=== PATIENT | female | born 1985 | race Caucasian/White ===

== ENCOUNTER 2022-12-21 10:27 | Inpatient (IN) | payer BC ==
[2022-12-21] MEDS ORDERED: MORPHINE 4 MG/ML SYR ONE (11:03)
[2022-12-21] MEDS ORDERED: ONDANSETRON 4 MG/2 ML VIAL ONE (11:03)
[2022-12-21] MEDS ORDERED: NA CHLORIDE 0.9% 1,000 ML ONE (11:04)
[2022-12-21] MEDS ORDERED: FAMOTIDINE 20 MG/2 ML VIAL IV ONE (11:04)
[2022-12-21 11:13] LABS: Specific Gravity 1.025 (1.005-1.030)
[2022-12-21 11:16] LABS: Specific Gravity 1.025 (1.005-1.030); Urine Bacteria 20-50 /HPF (<20); Urine Bilirubin NEGATIVE (Negative); Urine Blood 3+ (Negative); Urine Clarity Turbid (Clear); Urine Color Light-Yellow (Yellow); Urine Glucose 4+ (Over) (Negative); Urine Mucus Slight /HPF (None Seen); Urine Protein 1+ (Negative); Urine RBC <5 /HPF (None Seen); Urine Urobilinogen Normal (Normal)
[2022-12-21] MEDS ORDERED: HYDROMORPHONE HCL 1 MG/ML INJ ONE ×2 (11:19→13:47)
[2022-12-21 11:23] LABS: Absolute Lymphocytes (CBC) 2.1 K/uL (0.7-4.9); Hematocrit 35.5 % (36.0-45.0); Lymphocytes % 12.6 % (15.3-44.8); MCV 83.2 fL (80-100); RBC Red Blood Cell Count 4.26 M/uL (3.86-4.86)
[2022-12-21 11:26] LABS: Platelets 343 thou/uL (152-406)
[2022-12-21 11:28] LABS: MPV 8.7 fL (7.6-11.3)
[2022-12-21 11:31] LABS: Albumin 4.1 g/dL (3.4-5.0); Bilirubin Total 0.4 mg/dL (0.2-1.0); Potassium 3.6 mEq/L (3.5-5.1); Protein, Total 8.4 g/dL (6.4-8.2)
[2022-12-21 11:34] LABS: Blood Morphology Comment NOT SEEN (NOT SEEN); Platelet Estimate ADEQ; White Blood Cell Scan OK (OK)
--- NOTE | 2022-12-21 12:13 | RAD REPORT ---
EXAM DESCRIPTION: CT - Abdomen Pelvis W Contrast - 12/21/2022 11:46 am CLINICAL HISTORY: Abdominal pain COMPARISON: none. TECHNIQUE: Computed axial tomography of the abdomen pelvis was obtained. 95 cc Isovue-300 was admini stered intravenously. Oral contrast was not requested which limits evaluation of bowel and appendix All CT scans are performed using dose optimization technique as appropriate and may include automated exposure control or mA/KV adjustment according to patient size. FINDINGS: The liver is moderately enlarged. It contains fatty infiltration. Moderate stranding within the peripancreatic fat. No pseudocyst. Pancreas is normal density. Spleen, adrenals and kidneys unremarkable There is no evidence of diverticulitis. No adnexal mass. Small umbilical hernia Possible right hemicolectomy. This should be correlated clinically. If the patient has not had colon surgery then the cecum lies within right abdomen well above level of the iliac crests IMPRESSION: Moderate pancreatitis Hepatomegaly with fatty infiltration
--- NOTE | 2022-12-21 12:15 | RAD REPORT ---
EXAM DESCRIPTION: US - Abdomen Exam Complete - 12/21/2022 11:36 am CLINICAL HISTORY: Abdominal pain COMPARISON: none FINDINGS: The liver has an increased echotexture. Moderate hepatomegaly A gallstone is not seen. The gallbladder wall is not thickened. The biliary tree is normal caliber. The right kidney measures 12 centimeters with a normal echotexture. The left kidney measures 12 centimeters with a normal echotexture. The spleen measures 13 centimeters. Limited evaluation of pancreas, aorta and IVC secondary to overlying bowel gas IMPRESSION: Hepatomegaly with fatty infiltration Refer to CT abdomen report on today's date for pancreatic findings
[2022-12-21] MEDS ORDERED: HYDROMORPHONE HCL 0.5 MG/0.5 ML INJ ONE ×2 (12:29→12:31)
[2022-12-21] MEDS ORDERED: NA CHLORIDE 0.9% 2,000 ML ONE (12:30)
--- NOTE | 2022-12-21 12:38 | ER ---
Nurse's Notes [facility] Name: America Bustos Age: 36 yrs Sex: Female : 1985 Arrival Date: 12/21/2022 Time: 10:27 Bed 18 Private MD: Diagnosis: Epigastric abdominal tenderness;Biliary acute pancreatitis;Vomiting;Obesity, unspecified;Elevated white blood cell count;Hyperlipidemia, unspecified-HYPERTRIGLYCERDEMIA Presentation: 12/21 10:35 Chief complaint: Patient states: ABD pain since this morning - N/V. Coronavirus screen: ld1 At this time, the client does not indicate any symptoms associated with coronavirus-19. Ebola Screen: No symptoms or risks identified at this time. Initial Sepsis Screen: Does the patient meet any 2 criteria? No. Patient's initial sepsis screen is negative. Does the patient have a suspected source of infection? No. Patient's initial sepsis screen is negative. Risk Assessment: Do you want to hurt yourself or someone else? Patient reports no desire to harm self or others. Onset of symptoms was December 21, 2022. 10:35 Method Of Arrival: Ambulatory ld1 10:35 Acuity: PHYLLIS 3 ld1 Triage Assessment: 11:00 General: Appears in no apparent distress. uncomfortable, Behavior is cooperative, ld1 agitated, crying, fussy. Pain: Complains of pain in abdomen Pain does not radiate. Pain currently is 10 out of 10 on a pain scale. Quality of pain is described as sharp, shooting, throbbing, Pain began 4 hours ago. Is continuous. EENT: No signs and/or symptoms were reported regarding the EENT system. Neuro: Level of Consciousness is awake, alert, obeys commands, Oriented to person, place, time, situation. Cardiovascular: Capillary refill < 3 seconds Patient's skin is warm and dry. Rhythm is sinus rhythm. Respiratory: Airway is patent Respiratory effort is even, unlabored. GI: Abdomen is round non-distended, Reports lower abdominal pain, upper abdominal pain, nausea, vomiting. : No signs and/or symptoms were reported regarding the genitourinary system. Derm: No signs and/or symptoms reported regarding the dermatologic system. Musculoskeletal: No signs and/or symptoms reported regarding the musculoskeletal system. Historical: - Allergies: 10:35 OPIOID ANALGESICS; ld1 - PMHx: 10:35 Hypertensive disorder; Diabetes mellitus; ld1 - PSHx: 10:35 tubal ligation; ld1 - Immunization history:: Adult Immunizations up to date. - Social history:: Smoking status: Patient denies any tobacco usage or history of. - Family history:: not pertinent. Screenin:01 [facility] ED Fall Risk Assessment (Adult) History of falling in the last 3 months, ld1 including since admission No falls in past 3 months (0 pts). Abuse screen: Denies threats or abuse. Denies injuries from another. Nutritional screening: No deficits noted. Tuberculosis screening: No symptoms or risk factors identified. Assessment: 11:01 Reassessment: See triage assessment. ld1 Vital Signs: 10:35 BP 142 / 78; Pulse 90; Resp 18; Temp 97.9(O); Pulse Ox 100% on R/A; Height 5 ft. 6 in. ld1 ; Pain 10/10; 11:00 BP 142 / 78; Pulse 84; Resp 19; Pulse Ox 100% on R/A; Weight 99.79 kg; Height 5 ft. 9 ld1 in. ; Pain 10/10; 12:00 BP 144 / 89; Pulse 101; Resp 18; Pulse Ox 100% on R/A; Pain 9/10; me1 12:35 BP 116 / 81; Pulse 113; Resp 20; Pulse Ox 99% on R/A; Pain 9/10; me1 12:35 BP 130 / 78; Pulse 118; Resp 22; Pulse Ox 95% on R/A; Pain 6/10; me1 11:00 Body Mass Index 32.49 (99.79 kg, 175.26 cm) ld1 10:35 Pain Scale: Adult ld1 11:00 Pain Scale: Adult ld1 12:00 Pain Scale: Adult me1 12:35 Pain Scale: Adult me1 12:35 Pain Scale: Adult me1 ED Course: 10:28 Patient arrived in ED. mg5 10:35 Barbara Coffey, SOLO is Primary Nurse. ld1 10:36 Scar Vazquez MD is Attending Physician. maureen 10:36 Triage completed. ld1 10:59 Urinalysis w/ reflexes Sent. ld1 10:59 Test, Urine Sent. ld1 10:59 Lipase Sent. ld1 10:59 CMP Sent. ld1 10:59 CBC with Diff Sent. ld1 11:00 Arm band placed on right wrist. ld1 11:01 No provider procedures requiring assistance completed. Inserted saline lock: 20 gauge ld1 in right antecubital area, using aseptic technique. Blood collected. 11:01 Patient has correct armband on for positive identification. Placed in gown. Bed in low ld1 position. Call light in reach. Side rails up X2. hydraulic spinner on. Pulse ox on. NIBP on. Door closed. Noise minimized. Warm blanket given. 11:10 Test, Urine Sent. ld1 11:10 Urinalysis w/ reflexes Sent. ld1 11:38 US Abdomen Complete In Process Unspecified. EDMS 11:48 CT Abd/Pelvis - IV Contrast Only In Process Unspecified. EDMS 12:30 IV discontinued, intact, bleeding controlled, No redness/swelling at site. Pressure me1 dressing applied. 12:36 Wero Dominguez MD is Hospitalizing Provider. maureen 13:46 Inserted saline lock: 18 gauge in left EJ, using aseptic technique. ,using aseptic me1 technique. by Dr Vazquez. 14:10 Lactate w/ 2H reflex if indic. Sent. me1 14:10 Troponin HS Sent. me1 14:10 Accessed Right groin triple lumen central line started by Dr Vazquez. me1 Administered Medications: 10:59 Drug: NS 0.9% IV 1000 ml Route: IV; Rate: 1 bolus; Site: right antecubital; ld1 14:40 Follow up: IV Status: Completed infusion; IV Intake: 1000ml me1 10:59 Drug: Famotidine IVP 20 mg Route: IVP; Site: right antecubital; ld1 12:16 Follow up: Response: No adverse reaction me1 10:59 Drug: Ondansetron IVP 4 mg Route: IVP; Site: right antecubital; ld1 12:16 Follow up: Response: No adverse reaction me1 10:59 Drug: morphine IVP or IV 4 mg Route: IVP; Infused Over: 4 mins; Site: right antecubital;ld1 11:10 Follow up: Response: No adverse reaction ld1 11:10 Drug: HYDROmorphone IVP 1 mg Route: IVP; Site: right antecubital; ld1 12:47 Follow up: Response: No adverse reaction me1 12:27 Drug: NS 0.9% IV 1000 ml Route: IV; Rate: 1 bolus; Site: left antecubital; me1 12:27 Drug: NS 0.9% IV 1000 ml Route: IV; Rate: 1 bolus; Site: left antecubital; me1 12:27 Drug: HYDROmorphone IVP 1 mg Route: IVP; Site: left antecubital; me1 14:15 Follow up: Response: No adverse reaction; Pain is unchanged, physician notified me1 13:46 Drug: HYDROmorphone IVP 1 mg Route: IVP; Site: left jugular; me1 14:09 Follow up: Response: No adverse reaction; Pain is decreased me1 14:14 Drug: Meropenem IV 1 grams {Note: Right groin central line.} Route: IV; Rate: per me1 protocol; Site: Other; Medication: 11:01 VIS not applicable for this client. ld1 Intake: 14:40 IV: 1000ml; Total: 1000ml. me1 Outcome: 12:37 Decision to Hospitalize by Provider. maureen 14:44 Admitted to Med/surg me1 14:44 Condition: stable 14:44 Instructed on the need for admit. 14:45 Admitted to Med/surg accompanied by nurse, via stretcher, room 207, with chart, Report me1 called to SOLO Lara. 15:10 Patient left the ED. me1 Signatures: Dispatcher [employer] Scar Burger MD MD cha Sims, Lauren, RN RN [email or web address] Mary Sutherland RN RN me1 Leola Nicole mg5
--- NOTE | 2022-12-21 12:38 | EDPHYS ---
Physician Documentation [facility] Name: America Bustos Age: 36 yrs Sex: Female : 1985 Arrival Date: 12/21/2022 Time: 10:27 Bed 18 Private MD: ED Physician Scar Vazquez HPI: 12/21 12:32 This 36 yrs old Unknown Female presents to ER via Ambulatory with complaints of maureen Abdominal Pain. 12:32 The patient presents with abdominal pain abdominal distention in the upper abdomen. maureen Onset: The symptoms/episode began/occurred yesterday. The patient presents to the emergency department with nausea, vomiting, abdominal pain, of the epigastric area, right upper quadrant and left upper quadrant. Onset: The symptoms/episode began/occurred yesterday. Possible causes: unknown. The symptoms are aggravated by nothing. The symptoms are alleviated by nothing. The symptoms radiate to back. The symptoms do not radiate. Associated signs and symptoms: Pertinent positives: abdominal pain, nausea, vomiting. Historical: - Allergies: 10:35 OPIOID ANALGESICS; ld1 - PMHx: 10:35 Hypertensive disorder; Diabetes mellitus; ld1 - PSHx: 10:35 tubal ligation; ld1 - Immunization history:: Adult Immunizations up to date. - Social history:: Smoking status: Patient denies any tobacco usage or history of. - Family history:: not pertinent. ROS: 12:32 Constitutional: Negative for fever, chills, and weight loss, Eyes: Negative for injury, maureen pain, redness, and discharge, ENT: Negative for injury, pain, and discharge, Neck: Negative for injury, pain, and swelling, Cardiovascular: Negative for chest pain, palpitations, and edema, Respiratory: Negative for shortness of breath, cough, wheezing, and pleuritic chest pain, Back: Negative for injury and pain, : Negative for injury, bleeding, discharge, and swelling, MS/Extremity: Negative for injury and deformity, Skin: Negative for injury, rash, and discoloration, Neuro: Negative for headache, weakness, numbness, tingling, and seizure, Psych: Negative for depression, anxiety, suicide ideation, homicidal ideation, and hallucinations, Allergy/Immunology: Negative for hives, rash, and allergies, Endocrine: Negative for neck swelling, polydipsia, polyuria, polyphagia, and marked weight changes, Hematologic/Lymphatic: Negative for swollen nodes, abnormal bleeding, and unusual bruising. 12:32 Abdomen/GI: Positive for abdominal pain, nausea and vomiting, of the epigastric area, right upper quadrant and left upper quadrant. Exam: 12:32 Constitutional: This is a well developed, well nourished patient who is awake, alert, muareen and in no acute distress. Head/Face: Normocephalic, atraumatic. Eyes: Pupils equal round and reactive to light, extra-ocular motions intact. Lids and lashes normal. Conjunctiva and sclera are non-icteric and not injected. Cornea within normal limits. Periorbital areas with no swelling, redness, or edema. ENT: Nares patent. No nasal discharge, no septal abnormalities noted. Tympanic membranes are normal and external auditory canals are clear. Oropharynx with no redness, swelling, or masses, exudates, or evidence of obstruction, uvula midline. Mucous membranes moist. Neck: Trachea midline, no thyromegaly or masses palpated, and no cervical lymphadenopathy. Supple, full range of motion without nuchal rigidity, or vertebral point tenderness. No Meningismus. Chest/axilla: Normal chest wall appearance and motion. Nontender with no deformity. No lesions are appreciated. Cardiovascular: Regular rate and rhythm with a normal S1 and S2. No gallops, murmurs, or rubs. Normal PMI, no JVD. No pulse deficits. Respiratory: Lungs have equal breath sounds bilaterally, clear to auscultation and percussion. No rales, rhonchi or wheezes noted. No increased work of breathing, no retractions or nasal flaring. Back: No spinal tenderness. No costovertebral tenderness. Full range of motion. Female : Normal external genitalia. Skin: Warm, dry with normal turgor. Normal color with no rashes, no lesions, and no evidence of cellulitis. MS/ Extremity: Pulses equal, no cyanosis. Neurovascular intact. Full, normal range of motion. Neuro: Awake and alert, GCS 15, oriented to person, place, time, and situation. Cranial nerves II-XII grossly intact. Motor strength 5/5 in all extremities. Sensory grossly intact. Cerebellar exam normal. Normal gait. Psych: Awake, alert, with orientation to person, place and time. Behavior, mood, and affect are within normal limits. 12:32 Abdomen/GI: Inspection: distension, Bowel sounds: normal, Palpation: moderate abdominal tenderness, in the right upper quadrant and left upper quadrant, Liver: no appreciated palpable abnormalities, Hernia: not appreciated. 14:18 ECG was reviewed by the Attending Physician. [facility] Vital Signs: 10:35 BP 142 / 78; Pulse 90; Resp 18; Temp 97.9(O); Pulse Ox 100% on R/A; Height 5 ft. 6 in. ld1 ; Pain 10/10; 11:00 BP 142 / 78; Pulse 84; Resp 19; Pulse Ox 100% on R/A; Weight 99.79 kg; Height 5 ft. 9 ld1 in. ; Pain 10/10; 12:00 BP 144 / 89; Pulse 101; Resp 18; Pulse Ox 100% on R/A; Pain 9/10; me1 12:35 BP 116 / 81; Pulse 113; Resp 20; Pulse Ox 99% on R/A; Pain 9/10; me1 12:35 BP 130 / 78; Pulse 118; Resp 22; Pulse Ox 95% on R/A; Pain 6/10; me1 11:00 Body Mass Index 32.49 (99.79 kg, 175.26 cm) ld1 10:35 Pain Scale: Adult ld1 11:00 Pain Scale: Adult ld1 12:00 Pain Scale: Adult me1 12:35 Pain Scale: Adult me1 12:35 Pain Scale: Adult me1 Procedures: 13:49 Central Line: the site was prepped with Betadine, in sterile fashion, a triple lumen maureen catheter was inserted, in the right femoral vein, in 1 attempts. placement was verified, by blood return, the site was dressed with using sterile technique, the patient tolerated the procedure, well. Peripheral line: by aseptic technique a peripheral line was placed in the left external jugular vein. MDM: 10:36 Patient medically screened. [facility] 12:39 Differential diagnosis: Nonspecific abd pain, gastritis, cholecystitis, pancreatitis, maureen appendicitis, diverticulitis, viral gastroenteritis, gastroenteritis, bowel obstruction, cholecystitis, Cholelithiasis, gastritis, GI Bleed, Hepatitis, Menorrhagia, Mesenteric ischemia or infarction, non-specific abd pain, pancreatitis, Peptic Ulcer Disease, Perf. Duodenal Ulcer, Perf. Gastric Ulcer, Peritonitis, Pyelonephritis, Ureterolithiasis, urinary tract infection. Data reviewed: vital signs, nurses notes, lab test result(s), EKG, radiologic studies, CT scan, plain films, ultrasound. Consideration of Admission/Observation Patient was admitted/placed on observation. Escalation of care including admission/observation considered. I considered the following discharge prescriptions or medication management in the emergency department Medications were administered in the Emergency Department. See MAR. Independent interpretation of the following test(s) in the Emergency Department EKG: See my EKG interpretation above. Test considered but Not performed: MRI: no mrcp. Historians other than the Patient: Family Member: sister and mom, informed. Care significantly affected by the following chronic conditions: Diabetes, Hypertension, Obesity. Counseling: I had a detailed discussion with the patient and/or guardian regarding the historical points, exam findings, and any diagnostic results supporting the discharge/admit diagnosis, lab results, radiology results, the need for further work-up and treatment in the hospital. 12/21 10:37 Order name: CBC with Diff; Complete Time: 12:03 [facility] 12/21 10:37 Order name: CMP; Complete Time: 12:03 [facility] 12/21 10:37 Order name: Lipase; Complete Time: 12:03 [facility] 12/21 10:37 Order name: Test, Urine; Complete Time: 12:03 [facility] 12/21 10:37 Order name: Urinalysis w/ reflexes; Complete Time: 12:03 [facility] 12/21 11:32 Order name: CBC Smear Scan; Complete Time: 12:03 [facility] 12/21 12:04 Order name: Lipid Profile; Complete Time: 14:49 [facility] 12/21 12:39 Order name: Lactate w/ 2H reflex if indic.; Complete Time: 14:46 [facility] 12/21 12:39 Order name: Troponin HS; Complete Time: 14:46 [facility] 12/21 13:17 Order name: Urinalysis w/ reflexes [facility] 12/21 13:17 Order name: Basic Metabolic Panel EDID 12/21 13:17 Order name: Basic Metabolic Panel EDID 12/21 13:17 Order name: CBC with Automated Diff EDID 12/21 13:17 Order name: CBC with Automated Diff EDMS 12/21 13:17 Order name: Magnesium EDMS 12/21 13:17 Order name: Magnesium EDMS 12/21 13:17 Order name: Phosphorus EDMS 12/21 13:17 Order name: Phosphorus EDMS 12/21 13:25 Order name: Lipase EDMS 12/21 13:25 Order name: Lipase EDMS 12/21 13:25 Order name: Lipase EDMS 12/21 14:49 Order name: LDL, Direct; Complete Time: 14:49 EDID 12/21 10:37 Order name: CT Abd/Pelvis - IV Contrast Only; Complete Time: 12:28 [facility] 12/21 10:47 Order name: US Abdomen Complete; Complete Time: 12:28 [facility] 12/21 12:36 Order name: EKG; Complete Time: 12:36 [facility] 12/21 13:17 Order name: NPO EDID 12/21 10:37 Order name: IV Saline Lock; Complete Time: 10:46 [facility] 12/21 10:37 Order name: Labs collected and sent; Complete Time: 10:46 [facility] 12/21 12:36 Order name: EKG - Nurse/Tech; Complete Time: 14:21 [facility] 12/21 12:39 Order name: NPO; Complete Time: 12:47 [facility] EC:18 Rate is 115 beats/min. Rhythm is regular. QRS [place] is Normal. [place] interval is normal. maureen QRS interval is normal. QT interval is normal. No Q waves. T waves are Normal. No ST changes noted. Clinical impression: Sinus tachycardia and No evidence of ischemia. Interpreted by me. Reviewed by me. Administered Medications: 10:59 Drug: NS 0.9% IV 1000 ml Route: IV; Rate: 1 bolus; Site: right antecubital; ld1 14:40 Follow up: IV Status: Completed infusion; IV Intake: 1000ml me1 10:59 Drug: Famotidine IVP 20 mg Route: IVP; Site: right antecubital; ld1 12:16 Follow up: Response: No adverse reaction me1 10:59 Drug: Ondansetron IVP 4 mg Route: IVP; Site: right antecubital; ld1 12:16 Follow up: Response: No adverse reaction me1 10:59 Drug: morphine IVP or IV 4 mg Route: IVP; Infused Over: 4 mins; Site: right antecubital;ld1 11:10 Follow up: Response: No adverse reaction ld1 11:10 Drug: HYDROmorphone IVP 1 mg Route: IVP; Site: right antecubital; ld1 12:47 Follow up: Response: No adverse reaction me1 12:27 Drug: NS 0.9% IV 1000 ml Route: IV; Rate: 1 bolus; Site: left antecubital; me1 12:27 Drug: NS 0.9% IV 1000 ml Route: IV; Rate: 1 bolus; Site: left antecubital; me1 12:27 Drug: HYDROmorphone IVP 1 mg Route: IVP; Site: left antecubital; me1 14:15 Follow up: Response: No adverse reaction; Pain is unchanged, physician notified me1 13:46 Drug: HYDROmorphone IVP 1 mg Route: IVP; Site: left jugular; me1 14:09 Follow up: Response: No adverse reaction; Pain is decreased me1 14:14 Drug: Meropenem IV 1 grams {Note: Right groin central line.} Route: IV; Rate: per me1 protocol; Site: Other; Disposition Summary: 12/21/22 12:37 Hospitalization Ordered Hospitalization Status: Inpatient Admission maureen Provider: Wero Dominguez cha Condition: Fair maureen Problem: new maureen Symptoms: have improved maureen Bed/Room Type: Standard maureen Location: Intensive Care Unit(12/21/22 15:07) ja Room Assignment: 3-(12/21/22 15:07) [facility] Diagnosis - Epigastric abdominal tenderness maureen - Biliary acute pancreatitis maureen - Vomiting maureen - Obesity, unspecified maureen - Elevated white blood cell count maureen - Hyperlipidemia, unspecified - HYPERTRIGLYCERDEMIA maureen Forms: - Medication Reconciliation Form maureen - SBAR form maureen - Leadership Thank You Letter maureen Signatures: Dispatcher [employer] Scar Burger MD MD cha Aguilar, Jose RN RN ja1 Barbara Coffey RN RN ld1 Mary Sutherland RN RN me1 Corrections: (The following items were deleted from the chart) 14:16 12:37 maureen [facility] 15:07 12:37 Telemetry/MedSurg (Inpatient) [place] [id number] 15: 14:16 207 [facility] ja1
[2022-12-21] MEDS ORDERED: MORPHINE 4 MG/ML SYR IV PRN (13:22)
--- NOTE | 2022-12-21 13:36 | P.HP ---
Certification for Inpatient Patient admitted to: Inpatient With expected LOS: >2 Midnights <Ada Duncan - Last Filed: 12/21/22 15:11> Patient History Date of Service: 12/21/22 Reason for admission: abdominal pain History of Present Illness: Patient is a 36-year-old female with past medical history of hypertension, migraines, diabetes type 2, GERD, and PCOS. Patient presents to the ER with intense abdominal pain that started early this morning. Patient states abdomen is cramping associated with nausea/vomiting, chest pain, and dizziness. Patient family states patient is S/P laparoscopic bilateral salpingectomy approximately 1 month ago in [place], an increase in her metformin, as well as taking a second round of diflucan for a yeast infection occuring for 2 months. While in the ER blood pressure 142/78 heart rate 90, afebrile, CT abd/pelvis shows moderate pancreatitis, lipase 2471, glucose 369, lipid panel pending, WBC 16.3. Patient received 3 liters NS and dialudid for pain management. Patient will be admitted to ICU for acute pancreatitis. <Ada Duncan - Last Filed: 12/21/22 15:11> Date of Service: 12/21/22 <Wero Dominguez - Last Filed: 12/21/22 16:47> Allergies morphine Allergy (Verified 12/21/22 15:16) Nausea/Vomiting Review of Systems General: Unremarkable Eyes: Unremarkable ENT: Unremarkable Respiratory: Unremarkable Cardiovascular: Chest Pain Gastrointestinal: Nausea, Vomiting, Abdominal Pain Genitourinary: Unremarkable Musculoskeletal: Leg Pain (Left foot pain, s/p steroid injection) Integumentary: Unremarkable Neurological: Unremarkable Lymphatics: Unremarkable <Ada Duncan - Last Filed: 12/21/22 15:11> Physical Examination - Physical Exam General: Oriented x3, Acute distress, Obese HEENT: Atraumatic, Normocephalic, PERRLA Neck: Supple, 2+ carotid pulse no bruit, JVD not distended Respiratory: Clear to auscultation bilaterally, Normal air movement Cardiovascular: No edema, Normal pulses, Other (tachycardic) Capillary refill: <2 Seconds Gastrointestinal: Hypoactive, Distended, Hepatomegaly, Tenderness Musculoskeletal: No clubbing, No swelling, No contractures, No erythema Neurological: Normal gait, Normal speech, Normal strength at 5/5 x4 extr - Studies Laboratory Data (last 24 hrs) 12/21/22 12/21/22 10:48 10:48 WBC 16.30 H Hgb 12.4 Hct 35.5 L Plt Count 343 Sodium 136 Potassium 3.6 BUN 14 Creatinine 0.74 Glucose 369 H Total Bilirubin 0.4 AST 14 L ALT 39 Alkaline Phosphatase 65 Lipase 2471 H <Ada Duncan - Last Filed: 12/21/22 15:11> - Studies Laboratory Data (last 24 hrs) 12/21/22 12/21/22 10:48 10:48 WBC 16.30 H Hgb 12.4 Hct 35.5 L Plt Count 343 Sodium 136 Potassium 3.6 BUN 14 Creatinine 0.74 Glucose 369 H Total Bilirubin 0.4 AST 14 L ALT 39 Alkaline Phosphatase 65 Lipase 2471 H <Wero Dominguez - Last Filed: 12/21/22 16:47> Assessment and Plan - Plan Assessment and Plan Acute pancreatitis Hyperglycemia Hypertriglyceridemia -IVF NS 150ml/hr, 3 liters given in ED -NPO -trend lipase -insulin drip -monitor electrolytes daily -oxygen PRN -Dilaudid 2 mg Q3h PRN -pepcid daily -protonix daily h/o diabetes mellitus type 2 -accucheck with SSI -serum glucose 369 h/o HTN -labetolol PRN while NPO Full code NPO Return home at discharge Discharge Plan: Home Plan to discharge in: Greater than 2 days - Advance Directives Does patient have a Living Will: No Does patient have a Durable POA for Healthcare: No Time Spent Managing Pts Care (In Minutes): 55 <Ada Duncan - Last Filed: 12/21/22 15:11> - Plan Patient seen and examined in the ED. plan of care reviewed with BELL Duncan Hypertriglyceridemia induced acute pancreatitis First episode Unclear etiology / precipitating event yesterday took diflucan for yeast infection - reports yeast infection symptoms (vulvovaginitis) x 1.5 weeks; seen by Dr. Posadas in office yesterday woke up this morning with severe pain takes metformin, losartan -HCTZ; which can lead to drug-induced pancreatitis aggressive IVF hydration within first 24hrs, monitor i/o's ICU admit insulin drip pain control trend TG's q12hr repeat CMP this evening as well <Wero Dominguez - Last Filed: 12/21/22 16:47>
[2022-12-21] MEDS ORDERED: Meropenem 1000 MG/VIAL IV ONE (13:46)
[2022-12-21] MEDS ORDERED: NA CHLORIDE 0.9% 100 ML ONE (13:46)
[2022-12-21] MEDS ORDERED: NA CHLORIDE 0.9% 1,000 ML IV SCH (14:00)
[2022-12-21 14:37] LABS: HDL Cholesterol 42 mg/dL (40-60)
[2022-12-21 14:49] LABS: LDL, Direct 105 mg/dL (100-129)
[2022-12-21] MEDS ORDERED: LABETALOL 20 MG/4ML SYRINGE IV PRN (15:04)
[2022-12-21] MEDS ORDERED: SODIUM CHLORIDE 0.9% 10ML INJ IV PRN (15:04)
[2022-12-21] MEDS: HYDROMORPHONE HCL 2 MG/ML inj IV PRN ×3 (15:18→20:47)
[2022-12-21] MEDS ORDERED: D10W 250 ML BAG IV PRN (15:25)
[2022-12-21] MEDS ORDERED: GLUCAGON 1 MG/VIAL IM PRN (15:25)
[2022-12-21] MEDS: ENOXAPARIN 40 MG/0.4 ML SQ SCH (15:47)
[2022-12-21] MEDS: NA CHLORIDE 0.9% 1,000 ML IV SCH ×3 (15:47→23:31)
[2022-12-21] MEDS: INSULIN -REGULAR HUMAN 100 UNIT in NA CHLORIDE 0.9% 100 ML IV SCH (15:50)
[2022-12-21] MEDS ORDERED: INSULIN -REGULAR HUMAN 50 UNIT/0.5 ML ML SQ SCH (16:30)
[2022-12-21 16:32] VITALS: O2SAT 97; BMI 32.5
[2022-12-21] MEDS: PANTOPRAZOLE 40 MG INJ IVP SCH (20:33)
[2022-12-21 20:51] LABS: Albumin 3.2 g/dL (3.4-5.0); Bilirubin Total 0.3 mg/dL (0.2-1.0); Magnesium 1.7 mg/dL (1.6-2.4); Protein, Total 7.1 g/dL (6.4-8.2)
[2022-12-21] MEDS ORDERED: D5 0.9 NS 1,000 ML IV SCH (21:00)
[2022-12-21] MEDS ORDERED: CALCIUM GLUC 10% INJ 4.65 MEQ in NA CHLORIDE 0.9% 100 ML IV ONE (21:01)
[2022-12-21] MEDS ORDERED: HYDROMORPHONE HCL 1 MG/ML INJ IV ONE (22:08)
[2022-12-21] MEDS ORDERED: CALCIUM GLUCONATE 1 GM IVPB 1 GM/50 ML BAG IV ONE (22:24)
[2022-12-21] MEDS ORDERED: HYDROMORPHONE HCL 0.5 MG/0.5 ML INJ IV ONE (22:58)
[2022-12-21] MEDS ORDERED: MAGNESIUM SULFATE 1 gm IVPB 1 GM/100 ML BAG IV ONE (23:00)
[2022-12-21] MEDS ORDERED: NA CHLORIDE 0.9% 500 ML IV ONE (23:01)
[2022-12-22 00:14] LABS: Phosphorus 1.9 mg/dL (2.5-4.9)
[2022-12-22 00:21] LABS: Potassium 4.5 mEq/L (3.5-5.1)
[2022-12-22 00:22] LABS: Magnesium 1.7 mg/dL (1.6-2.4)
[2022-12-22] MEDS: HYDROMORPHONE HCL 2 MG/ML inj IV PRN (00:34)
[2022-12-22] MEDS: ONDANSETRON 4 MG/2 ML VIAL IV PRN ×2 (00:36→11:19)
[2022-12-22] MEDS: INSULIN -REGULAR HUMAN 100 UNIT in NA CHLORIDE 0.9% 100 ML IV SCH ×2 (00:54→10:23)
[2022-12-22] MEDS ORDERED: NA CHLORIDE 0.9% 100 ML ONE (01:02)
[2022-12-22] MEDS ORDERED: INSULIN -REGULAR HUMAN 50 UNIT/0.5 ML ML ONE (01:02)
--- NOTE | 2022-12-22 02:07 | P.PN ---
Date of Service: 12/22/22 Patient noted to be tachycardic with heart rate in the 140s, heart rate has been trending up since around 1800 on 12/21/2022. EKG obtained, rhythm is sinus tachycardia. Patient received 3 L IV fluid bolus in the emergency department following IV fluids at 150 cc/h. She still is having significant pain but does seem to be able to get some rest. She is afebrile, she reports that she typically only drinks alcohol around once per month or so does not appear to be having alcohol withdrawals, she is not taking any beta-yvette medications that she could be having rebound tachycardia from, she denies any recreational drug use. She was given an additional 500 cc bolus of IV fluids without any response/improvement in HR, IV fluids increased to 200 cc/h. She is maintained on insulin drip, she received additional doses of IV pain medications. Urine output less than 0.5 mL/kg/h currently, repeat chemistry from last night did not show acute renal failure at this time. She denies any chest pain does report some mild abdominal swelling and mild shortness of breath. We will continue supportive care. Case discussed with on-call attending.
[2022-12-22] MEDS: D5 0.9 NS 1,000 ML IV SCH ×2 (02:11→04:45)
[2022-12-22] MEDS ORDERED: HYDROMORPHONE HCL 0.5 MG/0.5 ML INJ IV ONE (02:45)
[2022-12-22] MEDS: NA CHLORIDE 0.9% 1,000 ML IV SCH (04:31)
[2022-12-22] MEDS ORDERED: NA CHLORIDE 0.9% 500 ML IV ONE (05:05)
[2022-12-22] MEDS ORDERED: NA CHLORIDE 0.9% 500 ML ONE (05:19)
[2022-12-22 05:51] LABS: Absolute Lymphocytes (CBC) 1.1 K/uL (0.7-4.9); Hematocrit 36.8 % (36.0-45.0); Lymphocytes % 5.2 % (15.3-44.8); MCV 85.3 fL (80-100); RBC Red Blood Cell Count 4.32 M/uL (3.86-4.86)
[2022-12-22 05:52] LABS: ALT/SGPT 30 U/L (13-56); AST/SGOT 24 U/L (15-37); Albumin 2.8 g/dL (3.4-5.0); Alkaline Phosphatase 44 U/L (45-117); BUN Blood Urea Nitrogen 10 mg/dL (7-18); Bicarbonate 22 mEq/L (21-32); Bilirubin Direct < 0.1 mg/dL (0-0.2); Bilirubin Indirect, Calculated ND mg/dL (0.2-0.8); Bilirubin Total 0.4 mg/dL (0.2-1.0); Glomerular Filtration Rate 59 ml/min (=/>90); Glucose Level 203 mg/dL (74-106); Lipase 1270 U/L (13-75); Magnesium 1.8 mg/dL (1.6-2.4); Platelets 392 thou/uL (152-406); Potassium 4.2 mEq/L (3.5-5.1); Protein, Total 6.4 g/dL (6.4-8.2); Sodium Level 138 mEq/L (136-145)
[2022-12-22 05:53] LABS: Phosphorus 1.1 mg/dL (2.5-4.9)
[2022-12-22 05:58] LABS: Thyroid Stimulating Hormone 0.632 uIU/mL (0.358-3.740)
[2022-12-22] MEDS: D5LR 1,000 ML IV SCH ×2 (07:23→12:04)
[2022-12-22] MEDS ORDERED: CALCIUM GLUCONATE 1 GM IVPB 1 GM/50 ML BAG IV ONE ×2 (07:30→11:45)
[2022-12-22] MEDS ORDERED: LIDOCAINE HCL JELLY 2% 6 ML SYRINGE TOP ONE (08:00)
--- NOTE | 2022-12-22 08:11 | RAD REPORT ---
EXAM DESCRIPTION: RAD - Abdomen 1 View (KUB) - 12/22/2022 7:59 am CLINICAL HISTORY: Placement of NGT/OGT. Post Insertion. COMPARISON: Abdomen 1 View (KUB) dated 12/22/2022 TECHNIQUE: Single AP view of the abdomen. FINDINGS: Enteric tube tip courses along the proximal stomach and terminates over the gastric body a s. Nonobstructive bowel gas pattern. Paucity of bowel gas throughout most of the abdomen, a nonspecif ic finding. No air-fluid levels, free air, or pneumatosis. No suspicious calcifications. No significant bony abnormality. IMPRESSION: NG tube as above. Paucity of bowel gas throughout most of the abdomen, a nonspecific finding.
[2022-12-22] MEDS ORDERED: SODIUM PHOSPHATE 30 MM in NA CHLORIDE 0.9% 500 ML IV ONE (08:30)
[2022-12-22] MEDS ORDERED: NYSTATIN 100MU/GM CREAM 15GM TOP SCH (09:00)
[2022-12-22] MEDS ORDERED: FAMOTIDINE 20 MG/2 ML VIAL IV SCH (09:00)
[2022-12-22] MEDS ORDERED: Meropenem 1,000 MG in NA CHLORIDE 0.9% 100 ML IV SCH (09:00)
[2022-12-22] MEDS: PANTOPRAZOLE 40 MG INJ IVP SCH (09:04)
[2022-12-22] MEDS: ENOXAPARIN 40 MG/0.4 ML SQ SCH (09:05)
[2022-12-22] MEDS ORDERED: FENTANYL CITR 100 MCG/2 ML IV PRN (09:28)
[2022-12-22 09:43] LABS: Arterial Blood Carboxyhemoglob 0.9 % (0-1.5); Blood Gas Oxyhemoglobin 90.9 % (94-97); Blood O2 Saturation 94.7 % (92-98.5)
[2022-12-22] MEDS ORDERED: ALBUMIN HUMAN 25% 200 ML IV ONE (10:00)
--- NOTE | 2022-12-22 10:31 | P.CNS ---
Date of Consult: 12/22/22 Reason for Consult: Severe pancreatitis tachycardia Chief Complaint: Pancreatitis History of Present Illness: Patient is 36 years of age admitted with pancreatitis secondary to hyperlipidemia prior history before came on rather suddenly and is tachycardic complaining of severe abdominal pain however she is alert moderate distress Allergies morphine Allergy (Verified 12/21/22 15:16) Nausea/Vomiting Home Medications: Losartan/Hydrochlorothiazide [Losartan-Hctz 100-25 mg Tab] 1 tab DAILY 12/21/22 Metformin HCl [Metformin HCl ER] 750 mg PO DAILY 12/21/22 - Past Medical/Surgical History Diabetic: Yes -: HTN -: Migraine -: DMII -: GERD -: PCOS -: Yeast Infection x 2 months -: Tubual Ligation -: Salpingectomy 11/2022 - Social History Alcohol use: Yes CD- Drugs: No Caffeine use: Yes Place of Residence: Home Review of Systems Unremarkable Gastrointestinal: Nausea, Abdominal Pain Physical Examination Temp Pulse Resp BP Pulse Ox 97.2 F 134 H 26 H 95/56 L 98 12/22/22 04:00 12/22/22 06:00 12/22/22 06:00 12/22/22 06:00 12/22/22 06:00 General: Alert, Oriented x3, Moderate distress Respiratory: Clear to auscultation bilaterally, Diminished Cardiovascular: No edema, Regular rate/rhythm, Normal S1 S2 Gastrointestinal: Hypoactive, Tenderness (Severe generalized tenderness), Rebound Musculoskeletal: No clubbing Integumentary: No rashes, No significant lesion Laboratory Data (last 24 hrs) 12/21/22 12/21/22 10:48 10:48 WBC 16.30 H Hgb 12.4 Hct 35.5 L Plt Count 343 Sodium 136 Potassium 3.6 BUN 14 Creatinine 0.74 Glucose 369 H Total Bilirubin 0.4 AST 14 L ALT 39 Alkaline Phosphatase 65 Lipase 2471 H - Problems (1) Severe acute pancreatitis Current Visit: Yes Status: Acute Plan: Patient is 36 years of age admitted with acute severe pancreatitis secondary to hyperlipidemia Labs reviewed white count is elevated to new with IV fluids as an albumin crease pain relief with fentanyl chest x-ray is clear agree with IV insulin
[2022-12-22 10:32] LABS: Albumin 2.3 g/dL (3.4-5.0)
[2022-12-22 10:51] LABS: Blood Morphology Comment NOT SEEN (NOT SEEN); Platelet Estimate ADEQ; White Blood Cell Scan OK (OK)
[2022-12-22 11:07] LABS: Magnesium 1.8 mg/dL (1.6-2.4); Potassium 4.2 mEq/L (3.5-5.1)
[2022-12-22 11:09] LABS: Phosphorus 0.7 mg/dL (2.5-4.9)
[2022-12-22] MEDS ORDERED: CALCIUM GLUC 10% INJ 4.65 MEQ in NA CHLORIDE 0.9% 100 ML IV ONE (11:14)
--- NOTE | 2022-12-22 11:24 | CON ---
Date of Consultation: 12/22/2022 Reason For Service: Pancreatitis. History Of Present Illness: This is the case of a 36-year-old patient admitted to the hospital [facility] with pancreatitis. She states she started feeling a little bit sick Óscar night. It was just sudden and she does not remember eating anything out of the usual and there is no other family member sick at home. She denies any dysuria, hematuria, hematochezia, melena. Denies recent traveling out of the country. Denies any family member sick at home. She does not drink alcohol and she stopped smoking several months ago. The pain started with abdominal cramping, mainly epigastric area, nausea and vomiting. The patient had about a month ago a laparoscopic salpingectomy by apparently Dr. Kandi chen in [place]. The medication she was taking outside namely Diflucan because of suspected yeast i nfection as per patient's family. Allergies: MORPHINE, ALTHOUGH IT REALLY JUST GAVE HER NAUSEA AND VOMITING. Social History: She does not smoke. She does not drink alcohol. Past Surgical History: Months ago, bilateral salpingectomy. Family History: Noncontributory. Physical Examination: General: Patient is awake, alert. NG tube in place. HEENT: Pupils are equal and reactive. Anicteric. Neck: Supple. Chest: Clear. Abdomen: Upper abdominal pain with guarding. No rebound. Extremities: Good capillary refill. Breasts: Deferred. Pelvic: Deferred. Rectal: Deferred. Laboratory Data: Blood work shows a WBC count of 21.4, hemoglobin of 12.7, platelets of 392. Last t riglycerides done was 2711, coming down from 3531. Lactic acid 917, it was 2.3, and calcium pending. The AST was 24, ALT 30, alkaline phosphate 44, and total bili of 0.4. CAT scan and ultrasound of t he abdomen done 12/21, interpreted by Dr. Nath as a small umbilical hernia. Moderate stranding o f the peripancreatic fat. No pseudocyst. Pancreatic is normal density. There is the cecum riding h igher than what they are expecting, but no previous colectomy. Hepatomegaly with fatty infiltration. All that discussed with the patient and the asset protection manager sitting at bedside. Assessment: 36-year-old patient with pancreatitis. From the surgical standpoint, apparently may be caused by triglyceride, although they have to check her blood pressure medications and recent medicat ion to see if there is any triggering from that. From the surgical standpoint, we have no plans for surgery at this moment. If she requires surgery, it will be for deterioration of the pancreatic tiss ue, and for that case, she might need to be in a high level of care. So, if medically she does not i mprove in the next 12-24 hours, I will recommend this patient to go to tertiary center where they can deal with the complication of the sequela of this severe pancreatitis. HM/MODL Voice ID: [id number] Report ID: [id number]
--- NOTE | 2022-12-22 11:45 | P.DS ---
Admission Date: 12/21/22 Discharge Date: 12/22/22 Reason for Admission: Pancreatitis Consultations: General Surgery - Dr. Richmond Nephrology - Dr. José Antonio Hsu/Digital Color Press Operator - Dr. Grace Brief History of Present Illness: 36yo F, PMH: hypertension, migraines, diabetes type 2, GERD, and PCOS. Patient presents to the ER with intense abdominal pain that started early yesterday morning. Patient states abdomen is cramping associated with nausea/vomiting, chest pain, and dizziness. Patient family states patient is S/P laparoscopic bilateral salpingectomy approximately 1 month ago in [place], an increase in her metformin, as well as taking a second round of diflucan for a yeast infection occuring for 2 months. While in the ER blood pressure 142/78 heart rate 90, afebrile, CT abd/pelvis shows moderate pancreatitis, lipase 2471, glucose 369, lipid panel pending, WBC 16.3. Patient received 3 liters NS and dialudid for pain management. Patient will be admitted to ICU for acute pancreatitis. Hospital Course: Problem List: Hypertriglyceridemia induced acute pancreatitis NIDDM2 Hypertension GERD PCOS Patient presented with abdominal pain, nausea/vomiting, chest pain and dizziness that began morning of admission. CT abdomen noted moderate carolyn-pancreatic fat stranding consistent with acute pancreatitis, Hepatomegaly with fatty infiltration. Labwork on admission significant for WBC 16.3, lipase 2471, triglycerides >3940 (over cutoff range), lactate 1.2, Ca: 8.4. First episode for patient. Unclear etiology. Shes noted to take metformin, losartan -HCTZ for awhile, and received one dose of diflucan for yeast infection/ vaginitis from her OXIDATION OPERATOR the day prior to admission. IV fluid treatment was briefly delayed due to loss of IV access in the ED, and failed attempts at re-establishing access. ED physician placed R femoral central line in the ED at time of admission. She received 3L NS on admission in the ED and upon arrival to the ICU was started on insulin drip at 10units/hr (0.1 unit/kg/hr) and D5NS @ 150ml/hr. a Castillo catheter was placed for accurate I/Os. Overnight she became more tachycardic (130s), and hypotensive (90s/55-60s). She received additional 2 boluses of 500ml of NS and rate of fluids increased to 200ml/hr with minimal to no change in blood pressure. MAPS remained 65-70. Repeat blood work noted downtrending calcium to 5s, hypophosphatemia, hy poalbuminemia. She received electrolyte replacements, and fluids were switched to D5 LR on the morning of 12/22. Patient reported increased pain, felt mostly in her back and felt more distended. NGT was placed morning of 12/22 Urine output remained around 0.2 mL/kg/h, and renal function worsening, creatinine from 0.7-1.2 Given her worsening clinical picture and high risk of complications/morbidity, transfer was initiated to [facility] for dedicated bobbin cleaner and available specialist support if she were to require procedural intervention. She was accepted for transfer on 12/22. Repeat bloodwork in the morning of 12/22 noted improvement of her lipase (1270) and TG (2711). Physical Exam: GEN: Alert, oriented, uncomfortable HEENT: Normal conjunctiva, sclera anicteric CV: Sinus tachycardia with HR in 130s, no edema Pulm: Non-labored respirations on 2L NC, tachypnea ABD: Distended, moderate-severe epigastric tenderness, hypoactive bowel sounds Integumentary: No rashes Neuro: Normal speech, AOx3, follows commands NGT in place Castillo in place R femoral central line Vital Signs/Physical Exam: Temp Pulse Resp BP Pulse Ox 97.9 F 136 H 18 121/68 97 12/22/22 08:00 12/22/22 10:00 12/22/22 10:53 12/22/22 10:00 12/22/22 10:53 Laboratory Data at Discharge: WBC 21.40 thou/uL (4.3-10.9) H 12/22/22 04:48 Hgb 12.7 g/dL (12.0-15.0) 12/22/22 04:48 Hct 36.8 % (36.0-45.0) 12/22/22 04:48 Plt Count 392 thou/uL (152-406) 12/22/22 04:48 Sodium 138 mEq/L (136-145) 12/22/22 09:28 Potassium 4.2 mEq/L (3.5-5.1) 12/22/22 09:28 BUN 12 mg/dL (7-18) 12/22/22 09:28 Creatinine 1.14 mg/dL (0.55-1.02) H 12/22/22 09:28 Glucose 208 mg/dL (74-106) H 12/22/22 09:28 Phosphorus 0.7 mg/dL (2.5-4.9) L* 12/22/22 09:28 Magnesium 1.8 mg/dL (1.6-2.4) 12/22/22 09:28 Total Bilirubin 0.4 mg/dL (0.2-1.0) 12/22/22 04:48 AST 24 U/L (15-37) 12/22/22 04:48 ALT 30 U/L (13-56) 12/22/22 04:48 Alkaline Phosphatase 44 U/L (45-117) L 12/22/22 04:48 Triglycerides 2711 mg/dL (<150) H 12/22/22 09:28 Cholesterol 439 mg/dL (<200) H 12/21/22 14:03 LDL Cholesterol Direct 105 mg/dL (100-129) 12/21/22 14:03 HDL Cholesterol 42 mg/dL (40-60) 12/21/22 14:03 Cholesterol/HDL Ratio 10.45 12/21/22 14:03 Lipase 1270 U/L (13-75) H 12/22/22 04:48 Home Medications: Losartan/Hydrochlorothiazide [Losartan-Hctz 100-25 mg Tab] 1 tab DAILY 12/21/22 Metformin HCl [Metformin HCl ER] 750 mg PO DAILY 12/21/22 Followup: Homero Marquez MD [Primary Care Provider] - Time spent managing pt's care (in minutes): 45
[2022-12-22] MEDS ORDERED: HYDROMORPHONE HCL 1 MG/ML INJ IV ONE ×2 (12:00→12:37)
[2022-12-22 14:10] VITALS: BP 123/58; TEMP 98.9
--- NOTE | 2022-12-23 10:03 | RAD REPORT ---
EXAM DESCRIPTION: RAD - Abdomen 1 View (KUB) - 12/22/2022 6:09 am CLINICAL HISTORY: Abdominal pain/distention COMPARISON: None. FINDINGS: Bowel: No dilated loops of large or small bowel. Peritoneum: No free intraperitoneal air identified. Solid organs: No definite organomegaly. Calcifications: No abnormal calcifications. Bones: No acute osseous abnormalities. Other: Right femoral approach central venous catheter. Leads overlie the abdomen. IMPRESSION: 1. Nonspecific bowel gas pattern. Electronically signed by: Dez Price 12/22/2022 6:39 AM CDT Due to temporary technical issues with the PACS/Fluency reporting system, reports are being signed by the in house radiologist without review as a courtesy to ensure prompt reporting. The interpreting r adiologist is fully responsible for the content of the report.
--- NOTE | 2022-12-23 12:05 | RAD REPORT ---
EXAM DESCRIPTION: RAD - Chest Single View - 12/22/2022 6:09 am CLINICAL HISTORY: The patient is 36 years old and is Female; tachycardia, volume status, ? Pleural e ffusion [facility] TECHNIQUE: Frontal view of the chest. COMPARISON: No relevant prior studies available. FINDINGS: LUNGS: Relatively expiratory low lung volumes with bandlike bibasilar opacities favoring subsegmental atelectasis. No other focal consolidation. PLEURAL SPACE: No appreciable pleural effusion. No pneumothorax. HEART: See below. MEDIASTINUM: Prominence of the cardiomediastinal silhouette, likely exaggerated secondary to portab le technique, lordotic positioning, and patient body habitus. BONES/JOINTS: Unremarkable. IMPRESSION: Relatively expiratory low lung volumes with bandlike bibasilar opacities favoring subseg mental atelectasis. Otherwise, allowing for positioning, no acute cardiopulmonary abnormality. Electronically signed by: Bryant Lindo MD 12/22/2022 6:24 AM CDT Due to temporary technical issues with the PACS/Fluency reporting system, reports are being signed by the in house radiologist without review as a courtesy to ensure prompt reporting. The interpreting r adiologist is fully responsible for the content of the report.
--- NOTE | 2022-12-23 19:06 | EKG ---
Test Date: 2022-12-22 Test Time: 04:55:25 Campus Director: GALEN MEASUREMENT RESULTS: Intervals: Rate: 137 SC: 114 QRSD: 86 QT: 310 QTc: 468 [place]: P: 26 SC: 114 QRS: 36 T: 45 INTERPRETIVE STATEMENTS: Sinus tachycardia Otherwise normal ECG Compared to ECG 12/22/2022 01:53:23 ST (T wave) deviation no longer present Electronically Signed On 12-23-22 19:04:26 CDT by Hill Gordon
--- NOTE | 2022-12-23 19:07 | EKG ---
Test Date: 2022-12-22 Test Time: 01:53:[address] Clearer: GALEN MEASUREMENT RESULTS: Intervals: Rate: 142 MN: 116 QRSD: 92 QT: 302 QTc: 464 [place]: P: 22 MN: 116 QRS: 34 T: 36 INTERPRETIVE STATEMENTS: Sinus tachycardia Nonspecific ST abnormality Abnormal ECG Compared to ECG 12/21/2022 13:58:35 ST (T wave) deviation now present Electronically Signed On 12-23-22 19:04:30 CDT by Hill Gordon
--- NOTE | 2022-12-23 19:08 | EKG ---
Test Date: 2022-12-21 Test Time: 13:58:35 Film Library Clerk: MEASUREMENT RESULTS: Intervals: Rate: 115 ND: 150 QRSD: 102 QT: 348 QTc: 481 [place]: P: 55 ND: 150 QRS: 71 T: 29 INTERPRETIVE STATEMENTS: Sinus tachycardia Otherwise normal ECG No previous ECG available for comparison Electronically Signed On 12-23-22 19:05:32 CDT by Hill Gordon
--- NOTE | 2022-12-25 14:43 | EKG ---
Test Date: 2022-12-22 Test Time: 08:39:01 Glacing Machine Tender: YESIKA MEASUREMENT RESULTS: Intervals: Rate: 135 OK: 118 QRSD: 86 QT: 318 QTc: 477 [place]: P: 20 OK: 118 QRS: 47 T: 37 INTERPRETIVE STATEMENTS: Sinus tachycardia Nonspecific ST abnormality Abnormal ECG Compared to ECG 12/22/2022 04:55:25 ST (T wave) deviation now present Electronically Signed On 12-25-22 14:34:44 CDT by Hill Gordon
[2022-12-26 11:04] LABS: Vitamin D 1,25-Dihydroxy Total 37 pg/mL (18-72); Vitamin D,1,25-OH2, D2 10 pg/mL
== END 2022-12-22 12:40 | disposition short-term general hospital (02) | DRG 440 ==
LOC: ER 10:27 → ERHOLD 13:08 → 2ND 14:39 → 3RD-ICU 15:30
PROVIDERS: ADMIT Hospitalist; ATTEND Hospitalist
DX: K85.10 Biliary acute pancreatitis without necrosis or infection (principal); I10 Essential (primary) hypertension; E78.5 Hyperlipidemia, unspecified; E78.1 Pure hyperglyceridemia; E28.2 Polycystic ovarian syndrome; E11.65 Type 2 diabetes mellitus with hyperglycemia; K42.9 Umbilical hernia without obstruction or gangrene; K76.0 Fatty (change of) liver, not elsewhere classified; E88.09 Other disorders of plasma-protein metabolism, not elsewhere classified; E83.39 Other disorders of phosphorus metabolism; K21.9 Gastro-esophageal reflux disease without esophagitis; D72.829 Elevated white blood cell count, unspecified; E66.9 Obesity, unspecified; Z88.5 Allergy status to narcotic agent; Z98.51 Tubal ligation status; Z68.32 Body mass index [BMI] 32.0-32.9, adult; Z79.899 Other long term (current) drug therapy
CPT/HCPCS: 36415; 36600; 71045; 74018; 74177; 76700; 80048; 80053; 80061; 80069; 80076; 81001; 81025; 82306; 82652; 82805; 82947; 83605; 83690; 83735; 83880; 83970; 84100; 84145; 84439; 84443; 84478; 84484; 85025; 87040; 93005; 99285; C9113; J0612; J1170; J1650; J1815; J2185; J2405; J3010; J3475; J7030; J7040; J7042; J7121; P9047; Q9967

== ENCOUNTER 2023-11-05 18:33 | Emergency (ER) | payer BC ==
[2023-11-05] MEDS ORDERED: FENTANYL CITR 100 MCG/2 ML ONE (19:13)
[2023-11-05] MEDS ORDERED: ONDANSETRON 4 MG/2 ML VIAL ONE (19:13)
[2023-11-05] MEDS ORDERED: NA CHLORIDE 0.9% 1,000 ML ONE (19:15)
[2023-11-05 19:41] LABS: Absolute Basophils 0.1 K/uL (0-0.5); Absolute Eosinophils 0.3 K/uL (0-0.5); Absolute Lymphocytes (CBC) 2.4 K/uL (0.7-4.9); Absolute Monocytes 1.1 K/uL (0.1-1.3); Absolute Neutrophil 11.6 K/uL (1.8-8.0); Basophils % 0.5 % (0-1.3); Eosinophils % 2.1 % (0-4.4); Hematocrit 35.6 % (36.0-45.0); Hemoglobin 11.8 g/dL (12.0-15.0); Lymphocytes % 15.4 % (15.3-44.8); MCH 28.5 pg (27.0-35.0); MCHC 33.1 g/dL (32.0-36.0); MCV 86.1 fL (80-100); MPV 8.1 fL (7.6-11.3); Monocytes % 6.8 % (3.3-12.3); Neutrophils % 75.2 % (41.7-73.7); Nucleated Red Blood Cells % 0.1 % (0-0); Platelets 354 thou/uL (152-406); RBC Red Blood Cell Count 4.14 M/uL (3.86-4.86); Red Cell Distribution Width 14.5 % (12.1-15.2)
[2023-11-05 19:56] LABS: Albumin 4.6 g/dL (3.4-5.0); Albumin/Globulin Ratio 1.3 (1.1-1.8); Anion Gap 11.4 mEq/L (5.0-15.0); Bilirubin Total 0.6 mg/dL (0.2-1.0); Globulin 3.5 g/dL (2.3-3.5); Potassium 3.4 mEq/L (3.5-5.1); Protein, Total 8.1 g/dL (6.4-8.2)
[2023-11-05 20:10] LABS: Specific Gravity 1.019 (1.005-1.030); Urine Bacteria 20-50 /HPF (<20); Urine Bilirubin NEGATIVE (Negative); Urine Blood Negative (Negative); Urine Clarity Extremely Turbid (Clear); Urine Color Yellow (Yellow); Urine Crystals Unidentified Few /HPF (None Seen); Urine Culture Reflex Order NOT NEEDED; Urine Glucose NEGATIVE (Negative); Urine Ketones NEGATIVE (Negative); Urine Microscopic Reflex YN ORDER UMIC; Urine Mucus Slight /HPF (None Seen); Urine Nitrite NEGATIVE (Negative); Urine Protein 1+ (Negative); Urine RBC None Seen /HPF (None Seen); Urine Urobilinogen Normal (Normal); Urine WBC None Seen /HPF (<5); Urine pH 5.5 (5.0-7.0)
[2023-11-05 20:12] LABS: Specific Gravity 1.019 (1.005-1.030)
--- NOTE | 2023-11-05 20:36 | RAD REPORT ---
EXAM DESCRIPTION: CTAbdomen Pelvis W Contrast - 11/05/2023 8:28 pm CLINICAL HISTORY: Abdominal pain. ABD PAIN COMPARISON: <Comparisons> TECHNIQUE: Biphasic CT imaging of the abdomen and pelvis was performed with 100 ml non-ionic IV cont rast. All CT scans are performed using dose optimization technique as appropriate and may include automated exposure control or mA/KV adjustment according to patient size. FINDINGS: The lung bases are clear. The liver demonstrates diffuse fatty infiltration. Spleen, pancreas, adrenal glands and kidneys are w ithin normal limits. No bowel obstruction, free air, free fluid or abscess. Small fat containing umbilical hernia. The chris endix is not identified as a discrete structure, however, no secondary findings of appendicitis are i dentified. No evidence of significant lymphadenopathy. No suspicious bony findings. IMPRESSION: No acute intra-abdominal or pelvic finding.
--- NOTE | 2023-11-05 21:04 | ER ---
Nurse's Notes [facility] Name: America Bustos Age: 37 yrs Sex: Female : 1985 Arrival Date: 11/05/2023 Time: 18:33 Bed 6 Private MD: Diagnosis: Nausea with vomiting, unspecified;Abdominal pain, Generalized;UTI/ Urinary tract infection, site not specified Presentation: 11/04 18:50 Chief complaint: Patient states: I think I may be having pancreatitis, nausea, ko1 vomiting, diarrhea, abdominal pain. Coronavirus screen: At this time, the client does not indicate any symptoms associated with coronavirus-19. Ebola Screen: No symptoms or risks identified at this time. Initial Sepsis Screen: Does the patient meet any 2 criteria? No. Patient's initial sepsis screen is negative. Does the patient have a suspected source of infection? No. Patient's initial sepsis screen is negative. Risk Assessment: Do you want to hurt yourself or someone else? Patient reports no desire to harm self or others. Onset of symptoms was November 05, 2023. 18:50 Method Of Arrival: Ambulatory ko1 18:50 Acuity: PHYLLIS 3 ko1 Triage Assessment: 18:53 General: Appears distressed, uncomfortable, ill, Behavior is cooperative, appropriate ko1 for age, anxious. Pain: Complains of pain in abdomen. GI: Reports lower abdominal pain, cramping, diarrhea, nausea, vomiting. 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 - Infectious Disease History:: Denies. - Social history:: Smoking status: Patient denies any tobacco usage or history of. Screenin:33 [facility] ED Fall Risk Assessment (Adult) History of falling in the last 3 months, pc2 including since admission No falls in past 3 months (0 pts) Confusion or Disorientation No (0 pts) Intoxicated or Sedated No (0 pts) Impaired Gait No (0 pts) Mobility Assist Device Used No (0 pt) Altered Elimination No (0 pt) Score/Fall Risk Level 0 - 2 = Low Risk Oriented to surroundings, Maintained a safe environment, Hourly rounding (assess needs \T\ fall precautionary measures) done. Abuse screen: Denies threats or abuse. Denies injuries from another. Nutritional screening: No deficits noted. Tuberculosis screening: No symptoms or risk factors identified. Assessment: 19:20 General: Appears in no apparent distress. uncomfortable, obese, well groomed, well pc2 developed, Behavior is calm, cooperative, appropriate for age. Pain: Complains of pain in abdomen Pain currently is 6 out of 10 on a pain scale. at worst was 8 out of 10 on a pain scale. Also complains of nausea. Neuro: Level of Consciousness is awake, alert, obeys commands, Oriented to person, place, time, situation. Cardiovascular: Capillary refill < 3 seconds Patient's skin is warm and dry. Respiratory: Airway is patent Respiratory effort is even, unlabored, Respiratory pattern is regular, symmetrical. GI: Bowel sounds present X 4 quads. Abd is soft X 4 quads Reports diarrhea, nausea, vomiting. : No signs and/or symptoms were reported regarding the genitourinary system. EENT: No signs and/or symptoms were reported regarding the EENT system. Derm: No signs and/or symptoms reported regarding the dermatologic system. Musculoskeletal: No signs and/or symptoms reported regarding the musculoskeletal system. 20:15 Reassessment: Patient appears in no apparent distress at this time. Patient and/or pc2 family updated on plan of care and expected duration. Pain level reassessed. 21:27 Reassessment: Patient appears in no apparent distress at this time. Patient and/or pc2 family updated on plan of care and expected duration. Pain level reassessed. Patient is alert, oriented x 3, equal unlabored respirations, skin warm/dry/pink. tolerated PO challenge. Patient states feeling better. Patient states symptoms have improved. 21:29 Reassessment: Patient and/or family updated on plan of care and expected duration. Pain ha1 level reassessed. Patient is alert, oriented x 3, equal unlabored respirations, skin warm/dry/pink. Patient denies pain at this time. Vital Signs: 18:50 BP 118 / 88; Pulse 126; Resp 18; Temp 97; Pulse Ox 98% ; ko1 19:37 BP 126 / 74; Pulse 107; Resp 17; Pulse Ox 98% on R/A; Pain 6/10; pc2 21:15 BP 130 / 78; Pulse 102; Resp 18; Pulse Ox 99% ; Pain 2/10; pc2 19:37 Pain Scale: Adult pc2 21:15 Pain Scale: Adult pc2 ED Course: 18:34 Patient arrived in ED. rg4 18:41 [facility] Casas, [facility]EE [facility] kb 18:41 Scar Vazquez MD is Attending Physician. kb 18:53 Triage completed. ko1 18:53 Arm band placed on right wrist. 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 19:25 Inserted saline lock: 20 gauge in left antecubital area, using aseptic technique. Blood ha1 collected. Flushed with 10 mL NS. 19:32 CBC with Diff Sent. pc2 19:32 CMP Sent. pc2 19:32 Lipase Sent. pc2 19:33 Patient has correct armband on for positive identification. Bed in low position. Call pc2 light in reach. Side rails up X 1. Provided Education on: POC and time frame. 19:33 Lipid Profile Sent. pc2 19:33 No provider procedures requiring assistance completed. pc2 19:37 Test, Urine Sent. pc2 19:37 Urinalysis w/ reflexes Sent. pc2 20:29 CT Abd/Pelvis - IV Contrast Only In Process Unspecified. EDMS 21:28 IV discontinued, intact, bleeding controlled, No redness/swelling at site. Pressure pc2 dressing applied. Administered Medications: 19:25 Drug: NS 0.9% IV 1000 ml IV at 1 bolus Per protocol; 1000 mL bolus Route: IV; Rate: 1 pc2 bolus; Site: left antecubital; 19:50 Follow up: Response: No adverse reaction; IV Status: Completed infusion; IV Intake: pc2 1000ml 19:25 Drug: Ondansetron IVP 4 mg IVP once; over 2 minutes Route: IVP; Site: left antecubital; pc2 19:55 Follow up: Response: No adverse reaction pc2 20:00 Follow up: Response: No adverse reaction; Marked relief of symptoms ha1 19:25 Drug: fentaNYL (PF) IVP 50 mcg IVP once Route: IVP; Site: left antecubital; pc2 19:55 Follow up: Response: No adverse reaction; Marked relief of symptoms; RASS: Alert and pc2 Calm (0) Medication: 19:35 VIS not applicable for this client. pc2 Intake: 19:50 IV: 1000ml; Total: 1000ml. pc2 Outcome: 21:03 Discharge ordered by . kb 21:27 Discharged to home ambulatory, pc2 21:27 Condition: stable 21:27 Discharge instructions given to patient, Instructed on discharge instructions, follow up and referral plans. medication usage, Demonstrated understanding of instructions, follow-up care, medications, Prescriptions given X 2, 21:29 Patient left the ED. ha1 Signatures: Dispatcher [employer] EDMS Amie Casas, SENIOR UX DEVELOPER-C SENIOR UX DEVELOPER-Carly Lew rg4 Chelly Sexton, RN RN ha1 Roxy Kingsley, RN RN ko1 Ella Deluca, RN RN pc2 Corrections: (The following items were deleted from the chart) 19:35 19:20 General: Appears in no apparent distress. uncomfortable, obese, well groomed, pc2 well developed, Behavior is calm, cooperative, appropriate for age, pc2 19:35 19:20 GI: Bowel sounds present X 4 quads. Abd is soft X 4 quads Reports nausea, pc2 vomiting, pc2
--- NOTE | 2023-11-05 21:04 | EDPHYS ---
Physician Documentation [facility] Name: America Bustos Age: 37 yrs Sex: Female : 1985 Arrival Date: 11/05/2023 Time: 18:33 Bed 6 Private MD: ED Physician Scar Vazquez HPI: 11/04 20:57 This 37 yrs old Female presents to ER via Ambulatory with complaints of Abdominal Pain, kb Nausea/Vomiting, Diarrhea. 20:57 Patient is a 37-year-old female who presents for diffuse abdominal pain, nausea, kb vomiting that started this morning. States symptoms feel similar to previous pancreatitis. Reports pancreatitis was due to elevated triglycerides at the time. Denies fever.. 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 - Infectious Disease History:: Denies. - Social history:: Smoking status: Patient denies any tobacco usage or history of. ROS: 20:57 Constitutional: As per HPI kb Exam: 20:57 Constitutional: This is a well developed, well nourished patient who is awake, alert, kb and in no acute distress. Head/Face: Normocephalic, atraumatic. ENT: Moist Mucous membranes Cardiovascular: Regular rate Respiratory: Respirations even and unlabored. No increased work of breathing. Talking in full sentences Skin: Warm, dry with normal turgor. Normal color. MS/ Extremity: Pulses equal, no cyanosis. Neurovascular intact. Full, normal range of motion. Neuro: Awake and alert, GCS 15, oriented to person, place, time, and situation. Moves all extremities. Normal gait. 20:57 Abdomen/GI: Inspection: abdomen appears normal, Bowel sounds: normal, Palpation: soft, in all quadrants, moderate abdominal tenderness, in all quadrants, Vital Signs: 18:50 BP 118 / 88; Pulse 126; Resp 18; Temp 97; Pulse Ox 98% ; ko1 19:37 BP 126 / 74; Pulse 107; Resp 17; Pulse Ox 98% on R/A; Pain 6/10; pc2 21:15 BP 130 / 78; Pulse 102; Resp 18; Pulse Ox 99% ; Pain 2/10; pc2 19:37 Pain Scale: Adult pc2 21:15 Pain Scale: Adult pc2 MDM: 18:42 Patient medically screened. kb 20:58 Differential diagnosis: gastritis, non-specific abd pain, Viral gastroenteritis, kb pancreatitis. Data reviewed: vital signs, nurses notes. Counseling: I had a detailed discussion with the patient and/or guardian regarding the historical points, exam findings, and any diagnostic results supporting the discharge/admit diagnosis, lab results, radiology results, the need for outpatient follow up, a family practitioner, to return to the emergency department if symptoms worsen or persist or if there are any questions or concerns that arise at home. 11/04 18:52 Order name: CBC with Diff; Complete Time: 19:57 kb 11/04 18:52 Order name: CMP; Complete Time: 19:57 kb 11/04 18:52 Order name: Lipase; Complete Time: 19:57 kb 11/04 18:52 Order name: Test, Urine; Complete Time: 20:12 kb 11/04 18:52 Order name: Urinalysis w/ reflexes; Complete Time: 20:12 kb 11/04 18:52 Order name: Lipid Profile; Complete Time: 19:57 kb 11/04 18:52 Order name: CT Abd/Pelvis - IV Contrast Only; Complete Time: 20:38 kb 11/04 18:52 Order name: IV Saline Lock; Complete Time: 19:32 kb 11/04 18:52 Order name: Labs collected and sent; Complete Time: 19:32 kb 11/04 20:58 Order name: PO challenge; Complete Time: 21:12 kb Administered Medications: 19:25 Drug: NS 0.9% IV 1000 ml IV at 1 bolus Per protocol; 1000 mL bolus Route: IV; Rate: 1 pc2 bolus; Site: left antecubital; 19:50 Follow up: Response: No adverse reaction; IV Status: Completed infusion; IV Intake: pc2 1000ml 19:25 Drug: Ondansetron IVP 4 mg IVP once; over 2 minutes Route: IVP; Site: left antecubital; pc2 19:55 Follow up: Response: No adverse reaction pc2 20:00 Follow up: Response: No adverse reaction; Marked relief of symptoms ha1 19:25 Drug: fentaNYL (PF) IVP 50 mcg IVP once Route: IVP; Site: left antecubital; pc2 19:55 Follow up: Response: No adverse reaction; Marked relief of symptoms; RASS: Alert and pc2 Calm (0) Disposition: 21:32 Co-signature as Attending Physician, Scar Vazquez MD I agree with the assessment and maureen plan of care. Disposition Summary: 11/05/23 21:03 Discharge Ordered Notes: Location: Home kb Condition: Stable kb Diagnosis - Nausea with vomiting, unspecified kb - Abdominal pain, Generalized kb - UTI/ Urinary tract infection, site not specified kb Followup: kb - With: Emergency Department - When: As needed - Reason: Worsening of condition Followup: kb - With: Private Physician - When: 2 - 3 days - Reason: Recheck today's complaints, Continuance of care, Re-evaluation by your physician Discharge Instructions: - Discharge Summary Sheet kb - Nausea and Vomiting, Adult, [id number] kb - Urinary Tract Infection, Adult, [id number] kb - Abdominal Pain, Adult, [id number] kb Forms: - Medication Reconciliation Form kb - Antibiotic Education kb - Prescription Opioid Use kb - Patient Portal Instructions kb - Leadership Thank You Letter kb Prescriptions: - Augmentin 875-125 mg Oral Tablet - take 1 tablet ORAL route every 12 hours for 10 days; 20 tablet; Refills: 0, kb Product Selection Permitted - Zofran 4 mg Oral tablet - take 1 tablet ORAL route every 6 hours As needed; 12 tablet; Refills: 0, kb Product Selection Permitted Signatures: Dispatcher [employer] Amie Boone, JONEL-Kam REMY-Scar Renae MD MD cha Oliver, Kathy, SOLO RN ko1 Ella Deluca, RN RN pc2 Chelly Sexton RN ha1 Corrections: (The following items were deleted from the chart) 18:52 18:52 CBC+H.LAB.BRZ ordered. EDMS EDMS 18:52 18:52 COMPREHENSIVE METABOLIC PANEL+C.LAB.BRZ ordered. EDMS EDMS 18:52 18:52 LIPASE+C.LAB.BRZ ordered. EDMS EDMS 18:52 18:52 Test, Urine+UC.LAB.BRZ ordered. EDMS EDMS 18:52 18:52 Urinalysis+U.LAB.BRZ ordered. EDMS EDMS 18:52 18:52 LIPID PROFILE+C.LAB.BRZ ordered. EDMS EDMS 18:53 18:53 Abdomen Pelvis W Con+CT.RAD.BRZ ordered. EDMS EDMS
[2023-11-06 04:08] VITALS: TEMP 97
[2023-11-06 04:15] VITALS: BP 130/78; O2SAT 99
== END 2023-11-05 21:29 | disposition home or self-care (01) ==
LOC: ER 18:33
DX: N39.0 Urinary tract infection, site not specified (principal); R10.84 Generalized abdominal pain
CPT/HCPCS: 36415; 74177; 80053; 80061; 81001; 81025; 83690; 85025; 96374; 96375; 99284; J2405; J3010; J7030; Q9967

== ENCOUNTER 2024-06-29 17:08 | Emergency (ER) | payer BC ==
[2024-06-29] MEDS ORDERED: ONDANSETRON 4 MG/2 ML VIAL ONE (17:24)
[2024-06-29] MEDS ORDERED: HYDROMORPHONE HCL 1 MG/ML INJ ONE (17:25)
[2024-06-29] MEDS ORDERED: NA CHLORIDE 0.9% 1,000 ML ONE (17:25)
[2024-06-29 17:47] LABS: Hematocrit 36.8 % (36.0-45.0); Hemoglobin 12.2 g/dL (12.0-15.0)
[2024-06-29 17:48] LABS: Absolute Basophils 0.1 K/uL (0-0.5); Absolute Eosinophils 0.3 K/uL (0-0.5); Absolute Monocytes 0.6 K/uL (0.1-1.3); Absolute Neutrophil 7.2 K/uL (1.8-8.0); Basophils % 0.9 % (0-1.3); Eosinophils % 2.8 % (0-4.4); Lymphocytes % 19.7 % (15.3-44.8); MCH 28.4 pg (27.0-35.0); MCHC 33.2 g/dL (32.0-36.0); MCV 85.8 fL (80-100); MPV 8.1 fL (7.6-11.3); Monocytes % 6.3 % (3.3-12.3); Neutrophils % 70.3 % (41.7-73.7); Platelets 362 thou/uL (152-406); Red Cell Distribution Width 14.3 % (12.1-15.2)
[2024-06-29 17:58] LABS: Albumin 4.1 g/dL (3.4-5.0); Albumin/Globulin Ratio 1.1 (1.1-1.8); Anion Gap 9.3 mEq/L (5.0-15.0); Bilirubin Total 0.4 mg/dL (0.2-1.0); Globulin 3.7 g/dL (2.3-3.5); Potassium 3.3 mEq/L (3.5-5.1); Protein, Total 7.8 g/dL (6.4-8.2)
--- NOTE | 2024-06-29 19:42 | RAD REPORT ---
EXAMINATION: CT Abdomen Pelvis W Contrast CLINICAL INDICATION: Female, 38 years old. ABD PAIN TECHNIQUE: CT abdomen and pelvis was performed, after the administration of IV contrast, as per [facility] protocol. Axial, sagittal and coronal reconstructions were obtained. One or more of the following dose reduction techniques were used: Automated exposure control, adjustment of the mA and k V according to patient size, and iterative reconstruction. Unless otherwise specified, incidental findings do not require dedicated imaging follow-up. COMPARISON: 11/05/2023 FINDINGS: LOWER CHEST: The visualized lung bases are clear. LIVER: Normal in size and contour. No focal lesion. BILIARY SYSTEM: No suspicious abnormalities. SPLEEN: Normal size. No focal lesion. PANCREAS: No mass, ductal dilation, or carolyn-pancreatic fluid. ADRENALS: Normal; no mass. KIDNEYS: Normal size and contour. No hydronephrosis. URINARY BLADDER: Unremarkable. GASTROINTESTINAL TRACT: No evidence of free air, significant intra-abdominal free fluid, bowel obstru ction or abscess. Redundancy of the colon with prominent gaseous distention to the level of the distal sigmoid colon. Fluid opacification of distal small bowel and ascending colon APPENDIX: Normal appendix. LYMPH NODES: No lymphadenopathy. MUSCULOSKELETAL: No acute or suspicious osseous abnormality. ADDITIONAL FINDINGS: Retroflexed uterus. Bulky appearance of the fundus may relate to underlying fibr oid. IMPRESSION: Prominent colonic gaseous distention. Nonspecific fluid opacification of distal small bowel and proxi mal colon, may relate to prior colonoscopy preparation material ingestion. No other acute or concerning abnormalities seen in the abdomen or pelvis.
[2024-06-29 19:52] LABS: Specific Gravity 1.023 (1.005-1.030)
[2024-06-29 20:09] LABS: Sqamous Epithelial <5 /HPF (None Seen); Urine Bacteria None Seen /HPF (<20); Urine Bilirubin NEGATIVE (Negative); Urine Blood Negative (Negative); Urine Clarity Clear (Clear); Urine Color Light-Yellow (Yellow); Urine Culture Reflex Order NOT NEEDED; Urine Glucose NEGATIVE (Negative); Urine Ketones NEGATIVE (Negative); Urine Microscopic Reflex YN ORDER UMIC; Urine Mucus 1+ /HPF (None Seen); Urine Nitrite NEGATIVE (Negative); Urine Protein TRACE (Negative); Urine RBC <5 /HPF (None Seen); Urine Urobilinogen Normal (Normal); Urine WBC <5 /HPF (<5); Urine WBC Clump Rare /HPF (None Seen); Urine pH 5.5 (5.0-7.0)
[2024-06-29 20:11] LABS: Specific Gravity > 1.030 (1.005-1.030)
--- NOTE | 2024-06-29 20:30 | ER ---
Nurse's Notes [facility] Name: America Bustos Age: 38 yrs Sex: Female : 1985 Arrival Date: 06/29/2024 Time: 17:08 Bed 24 Private MD: Diagnosis: Abdominal pain, Generalized Presentation: 06/29 17:13 Chief complaint: EMS states: Pt was getting a colonoscopy at the surgery center, they jb4 could not finish the procedure, pt woke with severe abdominal pain. Was given 33mg of ketamine for pain and 150mcg of fentanyl, and 4mg of zofran for nausea. Coronavirus screen: At this time, the client does not indicate any symptoms associated with coronavirus-19. Ebola Screen: No symptoms or risks identified at this time. Initial Sepsis Screen: Does the patient meet any 2 criteria? No. Patient's initial sepsis screen is negative. Does the patient have a suspected source of infection? No. Patient's initial sepsis screen is negative. Risk Assessment: Do you want to hurt yourself or someone else? Patient reports no desire to harm self or others. Onset of symptoms was June 29, 2024. Transition of care: patient was not received from another setting of care. 17:13 Method Of Arrival: EMS: [facility] jb4 17:13 Acuity: PHYLLIS 3 jb4 Historical: - Allergies: 17:19 Morphine; jb4 17:19 hydrocodone; jb4 17:19 ESTROGENS; jb4 - PMHx: 17:19 diabetes mellitus; miller triglycerides; Hypertensive disorder; Pancreatitis; jb4 leukocytosis; blood clots; fatty liver; H. Pylori; Vit. D3 deficiency; - PSHx: 17:19 tubal ligation; jb4 Screenin:06 [facility] ED Fall Risk Assessment (Adult) History of falling in the last 3 months, jb4 including since admission No falls in past 3 months (0 pts) Confusion or Disorientation No (0 pts) Intoxicated or Sedated No (0 pts) Impaired Gait No (0 pts) Mobility Assist Device Used No (0 pt) Altered Elimination No (0 pt) Score/Fall Risk Level 0 - 2 = Low Risk Oriented to surroundings, Maintained a safe environment. Abuse screen: Denies threats or abuse. Nutritional screening: No deficits noted. Tuberculosis screening: No symptoms or risk factors identified. Assessment: 17:19 General: Appears in no apparent distress. uncomfortable, Behavior is cooperative, jb4 agitated, anxious. Pain: Complains of pain in abdomen Pain does not radiate. Pain currently is 9 out of 10 on a pain scale. Neuro: Level of Consciousness is awake, alert, obeys commands, Oriented to person, place, time, situation. Cardiovascular: Patient's skin is warm and dry. Respiratory: Airway is patent Respiratory effort is even, unlabored, Respiratory pattern is regular, symmetrical. GI: Abdomen is round distended. Derm: Skin is intact, Skin is pink, warm \T\ dry. 17:19 Musculoskeletal: Circulation, motion, and sensation intact. Range of motion: intact in jb4 all extremities. 18:24 Reassessment: Patient appears in no apparent distress at this time. Patient and/or jb4 family updated on plan of care and expected duration. Pain level reassessed. Patient is alert, oriented x 3, equal unlabored respirations, skin warm/dry/pink. Patient states symptoms have improved. 19:55 Reassessment: Patient appears in no apparent distress at this time. Patient and/or jb4 family updated on plan of care and expected duration. Pain level reassessed. Patient is alert, oriented x 3, equal unlabored respirations, skin warm/dry/pink. Pt reports feeling much better after having episodes of flatulence. 21:06 Reassessment: Patient appears in no apparent distress at this time. Patient and/or jb4 family updated on plan of care and expected duration. Pain level reassessed. Patient is alert, oriented x 3, equal unlabored respirations, skin warm/dry/pink. Patient denies pain at this time. Patient states feeling better. Vital Signs: 17:13 BP 127 / 80; Pulse 83; Resp 30; Temp 98.2(O); Pulse Ox 100% on R/A; Weight 90 kg (R); jb4 Height 5 ft. 9 in. ; Pain 9/10; 18:24 BP 120 / 69; Pulse 91; Resp 16; Pulse Ox 100% on R/A; jb4 19:55 BP 103 / 67; Pulse 95; Resp 14; Pulse Ox 100% ; jb4 21:06 BP 104 / 73; Pulse 91; Resp 16; Pulse Ox 100% on R/A; jb4 17:13 Body Mass Index 29.30 (90.00 kg, 175.26 cm) jb4 17:13 Pain Scale: Adult jb4 ED Course: 17:12 Patient arrived in ED. jb4 17:12 [facility]C [facility] kb 17:12 Tu Redmond MD is Attending Physician. kb 17:15 Radiology exam delayed due to lab results not completed at this time. (BUN/Creatinine) nj test not completed at this time. IV insertion attempt and/or patient not having appropriate IV at this time. 17:19 Triage completed. jb4 17:19 Arm band placed on right wrist. jb4 17:36 CBC with Diff Sent. jb4 17:36 CMP Sent. jb4 17:36 Lipase Sent. jb4 18:24 Andres Avendano, SOLO is Primary Nurse. jb4 18:41 Inserted saline lock: 22 gauge in right antecubital area, using aseptic technique. jb4 19:00 CT Abd/Pelvis - IV Contrast Only In Process Unspecified. EDMS 21:06 Patient has correct armband on for positive identification. Bed in low position. Call jb4 light in reach. Side rails up X 1. Provided Education on: discharge instructions.. 21:10 No provider procedures requiring assistance completed. IV discontinued, intact, jb4 bleeding controlled, No redness/swelling at site. Pressure dressing applied. Administered Medications: 17:36 Drug: NS 0.9% IV 1000 ml IV at 1 bolus Per protocol; to be given as a bolus over 60 jb4 minutes Route: IV; Rate: 1 bolus; Site: right wrist; 21:00 Follow up: Response: No adverse reaction; IV Status: Completed infusion; IV Intake: jb4 1000ml 17:37 Drug: HYDROmorphone IVP 1 mg IVP once Route: IVP; Site: right wrist; jb4 18:00 Follow up: Response: No adverse reaction; Marked relief of symptoms jb4 17:38 Drug: Ondansetron IVP 4 mg IVP once; over 2 minutes Route: IVP; Site: right wrist; jb4 18:00 Follow up: Response: No adverse reaction; Marked relief of symptoms jb4 Medication: 21:06 VIS not applicable for this client. jb4 Intake: 21:00 IV: 1000ml; Total: 1000ml. jb4 Outcome: 20:29 Discharge ordered by MD. kb 21:10 Discharged to home ambulatory, with family, jb4 21:10 Condition: stable 21:10 Discharge instructions given to patient, Instructed on discharge instructions, follow up and referral plans. Demonstrated understanding of instructions, follow-up care, 21:12 Patient left the ED. jb4 Signatures: Dispatcher [employer] EDMS Amie Casas, Andres Garza RN RN jb4 Luis Patrick Corrections: (The following items were deleted from the chart) 19:56 19:55 Reassessment: Patient appears in no apparent distress at this time. Patient jb4 and/or family updated on plan of care and expected duration. Pain level reassessed. Patient is alert, oriented x 3, equal unlabored respirations, skin warm/dry/pink. jb4
--- NOTE | 2024-06-29 20:30 | EDPHYS ---
Physician Documentation [facility] Name: America Bustos Age: 38 yrs Sex: Female : 1985 Arrival Date: 06/29/2024 Time: 17:08 Bed 24 Private MD: ED Physician Tu Redmond HPI: 06/29 22:07 This 38 yrs old Female presents to ER via EMS with complaints of Abdominal Pain. kb 22:07 Patient is a 38-year-old female who presents for abdominal pain that occurred after kb colonoscopy. Patient was being seen by Dr. Young having a colonoscopy completed. Patient woke up after colonoscopy screaming in pain so she was sent to the ER for further evaluation.. Historical: - Allergies: 17:19 Morphine; jb4 17:19 hydrocodone; jb4 17:19 ESTROGENS; jb4 - PMHx: 17:19 diabetes mellitus; miller triglycerides; Hypertensive disorder; Pancreatitis; jb4 leukocytosis; blood clots; fatty liver; H. Pylori; Vit. D3 deficiency; - PSHx: 17:19 tubal ligation; jb4 ROS: 22:09 Constitutional: As per HPI kb Exam: 22:09 Constitutional: This is a well developed, well nourished patient who is awake, alert, kb and in no acute distress. Head/Face: Normocephalic, atraumatic. ENT: Moist Mucous membranes Cardiovascular: Regular rate Respiratory: Respirations even and unlabored. No increased work of breathing. Talking in full sentences Skin: Warm, dry with normal turgor. Normal color. MS/ Extremity: Pulses equal, no cyanosis. Neurovascular intact. Full, normal range of motion. Neuro: Awake and alert, GCS 15, oriented to person, place, time, and situation. 22:09 Abdomen/GI: Inspection: distension, that is moderate, in the abdomen diffusely, Bowel sounds: normal, Palpation: soft, in all quadrants, moderate abdominal tenderness, in the abdomen diffusely, Vital Signs: 17:13 BP 127 / 80; Pulse 83; Resp 30; Temp 98.2(O); Pulse Ox 100% on R/A; Weight 90 kg (R); jb4 Height 5 ft. 9 in. ; Pain 9/10; 18:24 BP 120 / 69; Pulse 91; Resp 16; Pulse Ox 100% on R/A; jb4 19:55 BP 103 / 67; Pulse 95; Resp 14; Pulse Ox 100% ; jb4 21:06 BP 104 / 73; Pulse 91; Resp 16; Pulse Ox 100% on R/A; jb4 17:13 Body Mass Index 29.30 (90.00 kg, 175.26 cm) jb4 17:13 Pain Scale: Adult jb4 MDM: 17:13 Medical Screening Exam initiated kb 22:09 Differential diagnosis: non-specific abd pain, Peptic Ulcer Disease, perforation. Data kb reviewed: vital signs, nurses notes. Historians other than the Patient: EMS: [facility]. 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 22:10 ED course: Pt passing gas and symptoms have greatly improved. kb 06/29 17:13 Order name: CBC with Diff; Complete Time: 17:57 kb 06/29 17:13 Order name: CMP; Complete Time: 17:58 kb 06/29 17:13 Order name: Lipase; Complete Time: 17:58 kb 06/29 17:13 Order name: Test, Urine; Complete Time: 20:05 kb 06/29 17:13 Order name: Urinalysis w/ reflexes; Complete Time: 20:11 kb 06/29 17:13 Order name: CT Abd/Pelvis - IV Contrast Only; Complete Time: 19:45 kb 06/29 17:13 Order name: IV Saline Lock; Complete Time: 17:36 kb 06/29 17:13 Order name: Labs collected and sent; Complete Time: 17:36 kb Administered Medications: 17:36 Drug: NS 0.9% IV 1000 ml IV at 1 bolus Per protocol; to be given as a bolus over 60 jb4 minutes Route: IV; Rate: 1 bolus; Site: right wrist; 21:00 Follow up: Response: No adverse reaction; IV Status: Completed infusion; IV Intake: jb4 1000ml 17:37 Drug: HYDROmorphone IVP 1 mg IVP once Route: IVP; Site: right wrist; jb4 18:00 Follow up: Response: No adverse reaction; Marked relief of symptoms jb4 17:38 Drug: Ondansetron IVP 4 mg IVP once; over 2 minutes Route: IVP; Site: right wrist; jb4 18:00 Follow up: Response: No adverse reaction; Marked relief of symptoms jb4 Disposition Summary: 06/29/24 20:29 Discharge Ordered Notes: Location: Home kb Condition: Stable kb Diagnosis - Abdominal pain, Generalized kb Followup: kb - With: Emergency Department - When: As needed - Reason: Worsening of condition Followup: kb - With: Private Physician - When: 2 - 3 days - Reason: Recheck today's complaints, Continuance of care, Re-evaluation by your physician Discharge Instructions: - Discharge Summary Sheet kb - Abdominal Pain, Adult, [id number] kb Forms: - Medication Reconciliation Form kb - Antibiotic Education kb - Prescription Opioid Use kb - Patient Portal Instructions kb - Leadership Thank You Letter kb Signatures: Dispatcher [employer] EDMS Amie Casas, JONEL-C JONEL-Andres Lees, RN RN jb4 Corrections: (The following items were deleted from the chart) 17:13 17:13 CBC+H.LAB.BRZ ordered. EDMS EDMS 17:13 17:13 COMPREHENSIVE METABOLIC PANEL+C.LAB.BRZ ordered. EDMS EDMS 17:13 17:13 LIPASE+C.LAB.BRZ ordered. EDMS EDMS 17:13 17:13 Test, Urine+UC.LAB.BRZ ordered. EDMS EDMS 17:13 17:13 Urinalysis+U.LAB.BRZ ordered. EDMS EDMS
[2024-06-29 21:35] VITALS: TEMP 98.2; O2SAT 100
[2024-06-29 21:39] VITALS: BP 104/73
== END 2024-06-29 21:12 | disposition home or self-care (01) ==
LOC: ER 17:08
DX: R10.84 Generalized abdominal pain (principal)
CPT/HCPCS: 96361; 85025; 81001; 36415; 81025; 83690; 80053; 74177; 96375; 96374; 99284; Q9967; J1171; J2405; J7030